=== PATIENT | male | born 1965 | race Caucasian/White ===

== ENCOUNTER 2019-03-04 07:34 | Day surgery (SDC) | payer OTHER ==
[2019-03-03 17:14] VITALS: BMI 29.2
[2019-03-04 08:11] LABS: #Basophils 0.1 thou/uL (0.0-0.2); #Eosinphils 0.3 thou/uL (0.0-0.7); #Lymphocytes 1.6 thou/uL (1.20-3.40); #Monocytes 0.6 thou/uL (0.11-0.59); #Neutrophils 2.1 thou/uL (1.40-6.50); %Basophils 2.1 % (0.0-1.0); %Eosinophils 6.5 % (0.0-10.0); %Monocytes 12.4 % (0.0-10.0); Mean Corpuscular HGB CONC 33.9 g/dL (32.0-36.0); Mean Corpuscular Hemoglobin 31.6 pg (27.0-31.0); Mean Corpuscular Volume 93.1 fL (78.0-98.0); Mean Platelet Volume 7.1 fL (7.4-10.4); Platelet Count 214 thou/uL (130-400); RBC Distribution Width 11.8 % (11.5-14.5); Red Blood Cell (RBC) Count 4.74 mill/uL (4.70-6.10); White Blood Cell (WBC) Count 4.6 thou/uL (4.8-10.8)
[2019-03-04] MEDS ORDERED: Lidocaine 1% (PF) 30 ML VIAL ONE (08:25)
[2019-03-04 08:27] LABS: ALT (SGPT) 31 U/L (8-55); AST (SGOT) 25 U/L (5-34); Albumin 4.2 g/dL (3.5-5.0); Alkaline Phosphatase 59 U/L (40-110); Anion Gap 10 mmol/L (10-20); BUN (Urea Nitrogen) 9 mg/dL (8.4-25.7); Bilirubin, Total 0.3 mg/dL (0.2-1.2); Calc. Creatinine Clearance 114 mL/min (70-130); Calcium 9.2 mg/dL (7.8-10.44); Carbon Dioxide 23 mmol/L (22-29); Chloride 110 mmol/L (98-107); Estimated GFR-MDRD 77; Globulin 2.7 g/dL (2.4-3.5); Glucose 103 mg/dL (70-105); Potassium 4.2 mmol/L (3.5-5.1); Protein, Total 6.9 g/dL (6.0-8.3); Sodium 139 mmol/L (136-145)
[2019-03-04] MEDS ORDERED: Diazepam 5 MG TAB ONE (08:32)
[2019-03-04] MEDS ORDERED: Fentanyl 100 MCG/2 ML VIAL ONE (10:06)
[2019-03-04] MEDS ORDERED: Midazolam HCl 2 mg/2 ml Vial ONE (10:06)
== END 2019-03-04 16:10 | disposition home or self-care (01) ==
LOC: CCL 07:34
PROVIDERS: ATTEND Internal Medicine Cardiovascular Disease
PROC: 4A023N7 Measurement of Cardiac Sampling and Pressure, Left Heart, Percutaneous Approach (ICD-10-PCS; principal; 2019-03-04)
DX: R07.89 Other chest pain (principal); E78.2 Mixed hyperlipidemia; F17.290 Nicotine dependence, other tobacco product, uncomplicated
CPT/HCPCS: 76942; 80053; 85025; 93458; 99152; C1769; J1644; J2001; J2250; J3010

== ENCOUNTER 2022-01-30 14:30 | Outpatient (CLI) | payer BC | END 2022-01-30 14:31 | disposition home or self-care (01) | LOC: SCSRAD 14:30 | PROVIDERS: ATTEND Family Medicine | DX: M25.531 Pain in right wrist (principal) ==